=== PATIENT | male | born 1975 | race African-American/Black ===

== ENCOUNTER 2016-12-05 01:32 | Emergency (ER) | payer SELFPAY ==
[~2016-12-05] VITALS: Ht 175.3 cm; Wt 75.0 kg
[2016-12-05] MEDS ORDERED: AZITHROMYCIN 500 MG TABLET PO ONE (06:30)
[2016-12-05] MEDS ORDERED: CEFTRIAXONE SODIUM 250 MG/VIAL IM ONE (06:30)
[2016-12-05] MEDS ORDERED: LIDOCAINE HCL 1% 20ML VIAL (Pyxis) INJ INFIL ONE (06:45)
[2016-12-05 07:30] VITALS: BP 123/77
[2016-12-05 07:47] LABS: CLARITY URINE CLEAR (CLEAR); COLOR URINE YELLOW (YELLOW); GLUCOSE URINE NEGATIVE (NEGATIVE); KETONES URINE NEGATIVE (NEGATIVE); LEUKOCYTE ESTERASE URINE 2+ (NEGATIVE); NITRITE URINE NEGATIVE (NEGATIVE); OCCULT BLOOD URINE NEGATIVE (NEGATIVE); PROTEIN URINE NEGATIVE (NEGATIVE); SPECIFIC GRAVITY URINE 1.017 (1.005-1.030); UROBILINOGEN URINE 0.2 E.U./dL (0.2-1.0)
[2016-12-09 06:06] LABS: CHLAMYDIA TRACHOMATIS NAA Negative (Negative)
[2016-12-10 05:20] LABS: NEISSERIA GONORRHOEAE NAA Positive (Negative)
== END 2016-12-05 09:27 | disposition home or self-care (01) ==
LOC: ER 08:38
DX: N34.2 Other urethritis (principal); F12.10 Cannabis abuse, uncomplicated; F17.290 Nicotine dependence, other tobacco product, uncomplicated; Z88.2 Allergy status to sulfonamides
CPT/HCPCS: 81001; 87491; 87591; 96372; 99284; 99406; J0696; J3490; Z7610